=== PATIENT | female | born 1960 | race Caucasian/White ===

== ENCOUNTER → 2016-06-25 | Outpatient (CLI) | payer BC ==
--- NOTE | 2016-06-25 12:44 | US ---
EXAMINATION TYPE: US venous doppler duplex LE LT DATE OF EXAM: 06/25/2016 12:22 PM COMPARISON: NONE CLINICAL HISTORY: M79.662 PAIN LT LOWER LIMB. Pt fell last week left knee hurts, pt is morbidly obese maybe 500 lbs SIDE PERFORMED: left VESSELS IMAGED: External Iliac Vein (EIV) Common Femoral Vein Deep Femoral Vein Greater Saphenous Vein * Femoral Vein Popliteal Vein Small Saphenous Vein * Proximal Calf Veins (* superficial vessels) Findings: very limited visualization due to pt size appears no DVT seen Left Leg: very limited visualization due to pt size appears no DVT seen IMPRESSION: No definite DVT seen by ultrasound on this somewhat limited study.
--- NOTE | 2016-06-25 12:54 | XR ---
EXAMINATION TYPE: XR knee complete LT DATE OF EXAM: 06/25/2016 12:49 PM COMPARISON: NONE HISTORY: Pain FINDINGS: Severe narrowing of the medial compartment of the knee joint with hypertrophic change. Moderate belcher es involving the patellofemoral joint.. Osseous structures are intact. No acute fracture seen. IMPRESSION: 1. No acute fracture or dislocation. 2. Severe osteoarthritis.
== END | disposition home or self-care (01) ==
LOC: RADUSWWP 11:32
PROVIDERS: ATTEND Family Medicine
DX: M79.662 Pain in left lower leg (principal); M17.12 Unilateral primary osteoarthritis, left knee

== ENCOUNTER → 2017-11-14 | Outpatient (CLI) | payer BC ==
--- NOTE | 2017-11-15 09:53 | CT ---
EXAMINATION TYPE: CT brain wo con DATE OF EXAM: 11/14/2017 COMPARISON: NONE HISTORY: History of traumatic brain injury CT DLP: 1150.50 mGycm Automated exposure control for dose reduction was used. FINDINGS: Hyperostosis of the calvarium. Calvarium intact. There is mild to moderate generalized degenerative change. Faint periventricular low attenuation is n onspecific. No midline shift or acute hemorrhage. IMPRESSION: DEGENERATIVE AND NONSPECIFIC WHITE MATTER CHANGES MOST TYPICAL REMOTE MICROVASCULAR ISCHEMIA. CORRELA TE WITH MRI CLINICALLY WARRANTED.
== END | disposition home or self-care (01) ==
LOC: RADCTMAIN 10:37
PROVIDERS: ATTEND Family Medicine
DX: G31.9 Degenerative disease of nervous system, unspecified (principal); R90.82 White matter disease, unspecified; Z87.820 Personal history of traumatic brain injury
CPT/HCPCS: 70450